=== PATIENT | female | born 1975 | race Caucasian/White ===

== ENCOUNTER 2018-02-07 17:36 | Emergency (ER) | END 2018-02-07 19:11 | disposition home or self-care (01) ==

== ENCOUNTER 2018-03-21 21:34 | Emergency (ER) | END 2018-03-21 22:27 | disposition left against medical advice (07) ==

== ENCOUNTER 2018-07-15 20:02 | Emergency (ER) | payer OTHER ==
[~2018-07-15] VITALS: Ht 157.5 cm; Wt 58.2 kg
[2018-07-15 20:26] VITALS: Ht 157.5 cm; Wt 58.2 kg
[2018-07-16] MEDS ORDERED: TRIA15CR55 TOP (01:09)
[2018-07-16 01:16] VITALS: BP 128/78; PULSE 96; RESP 20
--- NOTE | 2018-07-16 01:43 | ERD ---
ER Documentation Chief Complaint Chief Complaint STATES POSSIBLE ALLERGIC REACTION TO HAIR PRODUCT, C/O JOINT PAIN HPI This is a 42-year-old female presents ED with complaints of rash on hand status post using a new hair product on June 22, 2018. Patient states that she noticed some red bumps and a dry sporadic rash on hand that was itchy. Patient denies any bumps on hand at this time. Patient has a history of leukemia which she was treated for in 2013. Patient is here seeking a CBC. Patient denies any chest pain, shortness breath, tongue swelling, lip swelling, wheezing, trouble breathing, fever, chills, and all other symptoms. ROS All systems reviewed and are negative except as per history of present illness. Medications Home Meds Active Scripts Triamcinolone Acetonide (Triamcinolone Acetonide) 0.1% - 15 Gm Cream.gm., 1 APPLIC TOP BID, #1 TUB Prov:ELY COTTON PA-C 07/16/18 PMhx/Soc Medical and Surgical Hx: pt denies Surgical Hx History of Surgery: No Hx Neurological Disorder: No Hx Respiratory Disorders: No Hx Cardiac Disorders: No Hx Psychiatric Problems: No Hx Miscellaneous Medical Probl: Yes (leukemia) Hx Alcohol Use: No Hx Substance Use: No Hx Tobacco Use: No Smoking Status: Never smoker Physical Exam Vitals Vital Signs Date Temp Pulse Resp B/P (MAP) Pulse Ox O2 O2 Flow FiO2 Time Delivery Rate 07/16/18 98.1 96 20 128/78 100 Room Air 01:16 (95) 07/15/18 98.1 101 20 136/81 98 20:26 (99) Physical Exam Const: No acute distress Head: Atraumatic Eyes: Normal Conjunctiva ENT: Normal External Ears, Nose and Mouth. No tongue swelling, lip swelling, no uvula swelling tonsillar adenopathy, exudate or erythema, no kissing tonsils, no uvula deviation Neck: Full range of motion. No meningismus. Resp: Clear to auscultation bilaterally Cardio: Regular rate and rhythm, no murmurs Skin: There is a small area of a dry eczematous-like rash on patient's right hand that is roughly 1 inch in diameter, there are no hives, Neur: Awake and alert Psych: anxious Result Diagram: 07/16/18 0052 Results 24 hrs Laboratory Tests Test 07/16/18 00:52 White Blood Count 9.4 10^3/ul Red Blood Count 4.70 10^6/ul Hemoglobin 13.7 g/dl Hematocrit 40.4 % Mean Corpuscular Volume 86.0 fl Mean Corpuscular Hemoglobin 29.1 pg Mean Corpuscular Hemoglobin Concent 33.9 g/dl Red Cell Distribution Width 12.2 % Platelet Count 268 10^3/UL Mean Platelet Volume 9.6 fl Immature Granulocytes % 0.400 % Neutrophils % 61.7 % Lymphocytes % 30.7 % Monocytes % 6.4 % Eosinophils % 0.4 % Basophils % 0.4 % Nucleated Red Blood Cells % 0.0 /100WBC Immature Granulocytes # 0.040 10^3/ul Neutrophils # 5.8 10^3/ul Lymphocytes # 2.9 10^3/ul Monocytes # 0.6 10^3/ul Eosinophils # 0.0 10^3/ul Basophils # 0.0 10^3/ul Nucleated Red Blood Cells # 0.0 10^3/ul Procedures/MDM LAB INTERPRETATION: CBC: no e/o of systemic infection or severe anemia ER COURSE: The patient was stable throughout ED course. I kept the patient and/or family informed of laboratory and diagnostic imaging results throughout the emergency room course. The patient was promptly evaluated and a treatment plan was devised based on H&P and other data. This plan was discussed with the patient who agreed and had no further questions or concerns prior to discharge. MEDICAL DECISION MAKING: This is a 42-year-old female presents ED with complaints of allergic reaction after using a new hair product on June 22, 2018. Patient is complaining of bumps on her right hand that come and go. Patient currently does not have any bumps in the right hand. There is a small area of an eczematous-like rash. This is likely atopic dermatitis. Patient is requesting a CBC. CBC in the emergency department is unremarkable. Patient was advised to follow-up with dermatology regarding allergy testing. I do not think patient is having an allergic reaction at this time. no evidence of anaphylaxis, STS, TEN, Lyme's disease, syphilis, [place] spotted fever, shingles, disseminated gonorrhea chlamydia, DIC, TTP, ITP, sepsis, necrotizing fasciitis, gangrene, or other emergent condition. Patient's vitals are stable and can be managed with outpatient close follow-up. Advised patient to follow-up with her primary care in the next 48 hours. Advised patient return to ED with any worsening symptoms. DISPOSITION PLAN: We discussed follow up with the patient's primary care doctor within 24 to 48 hours. Patient counseled regarding my diagnostic impression and care plan. Prior to discharge all questions answered. Pt agrees with treatment plan and understands strict return precautions. Precautionary instructions provided including instructions to return to the ER if not improving or for any worsening or changing symptoms or concerns. SPECIALIST FOLLOW UP RECOMMENDED: derm Patient has been advised to follow up with primary care in 1-2 days. Disclaimer: Inadvertent spelling and grammatical errors are likely due to EHR/dictation software use and do not reflect on the overall quality of patient care. Also, please note that the electronic time recorded on this note does not necessarily reflect the actual time of the patient encounter. Blood Pressure Assessment: Patient's blood pressure was elevated (>120/80) but appears stable without evidence of hypertension emergency or urgency. The patient was counseled about the risks of hypertension and urged to pursue outpatient monitoring and therapy within a week with their primary care physician. Departure Diagnosis: Primary Impression: Rash Additional Impression: Laboratory test Condition: Stable Patient Instructions: Self-Care for Skin Rashes, Atopic Dermatitis (Eczema) Referrals: SILVIA TEJADA MD,TOBIN HALL MD, LAWRENCE J [facility] YOU HAVE RECEIVED A MEDICAL SCREENING EXAM AND THE RESULTS INDICATE THAT YOU DO NOT HAVE A CONDITION THAT REQUIRES URGENT TREATMENT IN THE EMERGENCY DEPARTMENT. FURTHER EVALUATION AND TREATMENT OF YOUR CONDITION CAN WAIT UNTIL YOU ARE SEEN IN YOUR DOCTORS OFFICE WITHIN THE NEXT 1-2 DAYS. IT IS YOUR RESPONSIBILITY TO MAKE AN APPOINTMENT FOR FOLOW-UP CARE. IF YOU HAVE A PRIMARY DOCTOR --you should call your primary doctor and schedule an appointment IF YOU DO NOT HAVE A PRIMARY DOCTOR YOU CAN CALL OUR PHYSICIAN REFERRAL HOTLINE AT IF YOU CAN NOT AFFORD TO SEE A PHYSICIAN YOU CAN CHOSE FROM THE FOLLOWING [facility] [address] [facility] [address] [facility] [address] [facility] [address] [facility] [address] [facility] [facility] [address] Additional Instructions: Patient advised to return to the ED immediately for new or worsening symptoms. Patient advised to follow up with primary care provider in the next 24-48 hours. Patient verbalized understanding and agrees with treatment plan and course of ac tion. If patient has no primary care they may follow up with one of the community clinics listed on the following page or one of the options listed below [facility] [address] [place] [id number] or [facility] [address] [place] [address] or [facility] [address] [place] [address] ELY COTTON PA-C Jul 16, 2018 01:43
== END 2018-07-16 01:17 | disposition home or self-care (01) ==
LOC: FTE 20:02
DX: R21 Rash and other nonspecific skin eruption (principal); Z85.6 Personal history of leukemia
CPT/HCPCS: 36415; 85025; Z7502; 99283